=== PATIENT | female | born 2000 | race Caucasian/White ===

== ENCOUNTER 2019-01-16 11:31 | Emergency (ER) | payer BC ==
[~2019-01-16] VITALS: Ht 157.5 cm; Wt 64.2 kg
--- NOTE | 2019-01-16 11:50 | NUR ---
[facility]
[2019-01-16 12:43] LABS: BASOPHILS # (AUTO) 0.03 x10^3/uL (0-0.3); BASOPHILS % (AUTO) 1 % (0-1); EOSINOPHILS # (AUTO) 0.05 x10^3/uL (0-0.8); EOSINOPHILS % (AUTO) 1 % (1-7); LYMPHOCYTES # (AUTO) 1.57 x10^3/uL (1-6.1); LYMPHOCYTES % (AUTO) 41 % (22-44); MD NO; MEAN CORPUSCULAR HGB CONC 33.5 g/dL (32.4-35.8); MEAN CORPUSCULAR VOLUME 83.5 fL (80-100); MEAN PLATELET VOLUME 8.6 fL (7.4-10.4); MONOCYTES # (AUTO) 0.34 x10^3/uL (0-1.4); MONOCYTES % (AUTO) 9 % (2-9); NEUTROPHILS # (AUTO) 1.88 x10^3/uL (1.8-8.0); NEUTROPHILS % (AUTO) 49 % (42-75); PLATELET COUNT 244 x10^3/uL (130-400); RED CELL DISTRIBUTION WIDTH 15.7 % (9.6-15.2)
[2019-01-16 12:50] LABS: ALBUMIN 4.5 g/dL (3.4-5.0); ANION GAP 4 mmol/L (5-15); CALCIUM 8.9 mg/dL (8.5-10.1); CHLORIDE 108 mmol/L (98-107); CREATININE 0.81 mg/dL (0.55-1.02)
--- NOTE | 2019-01-16 13:13 | NUR ---
patient transported for ct scan
[2019-01-16 13:17] LABS: MICROSCOPIC INDICATED
[2019-01-16 13:27] LABS: CULTURE INDICATED? NO
--- NOTE | 2019-01-16 13:47 | NUR ---
Discharge instuctions discussed with patient, verbalizes understanding, questions answered. Air cast applied to left ankle as ordered by Dr. Tijerina, patient tolerated well. Patient ambulates with limp to discharge desk with her boyfriend.
[2019-01-16 13:48] VITALS: BP 110/54
== END 2019-01-16 13:50 | disposition home or self-care (01) ==
LOC: ED 13:00
DX: R55 Syncope and collapse (principal)
CPT/HCPCS: 36415; 70450; 80048; 81001; 82040; 84703; 85025; 93005; 99284

== ENCOUNTER 2020-11-28 13:22 | Emergency (ER) | payer BC ==
[~2020-11-28] VITALS: Ht 157.5 cm; Wt 59.0 kg
[~2020-11-28 13:22] MED LIST: BIRTH CONTROL PILL
--- NOTE | 2020-11-28 13:22 | NUR ---
PHIL FROM [facility] C/O SI (PLAN TO GO TO [employer] [employer]), WORSENING DEPRESSION OVER "A FEW MONTHS", + INTERMITTENT VISUAL HALLUC (FLOOR & COLES WAVY, SHADOWS, SHIMMERING LIGHTS), HX/O SA X15 WITH LAST EPISODE OF OD OF RX MEDS & INGESTION OF BODY MIST. Addendum: 11/28/20 at 1345 by BESSY Amendment undone in EDM - 11/28/20 at 1349 by BESSY PHIL FROM [facility] C/O SI (PLAN TO GO TO [employer] [employer] [facility]), WORSENING DEPRESSION OVER "A FEW MONTHS", + INTERMITTENT VISUAL HALLUC (FLOOR & COLES WAVY, SHADOWS, SHIMMERING LIGHTS), HX/O SA X15 WITH LAST EPISODE OF OD OF RX MEDS & INGESTION OF BODY MIST. PT CHANGED INTO GOWN, CXALM & COOPERATIVE, FLAT AFFECT BUT RESPONDS APPROP TO STAFF, NAD, COMFORT MEASURES PROVIDED, PT IN SAFE ENVIRONMENT, CALL LIGHT WITHIN REACH, ALL PERSONAL BELONGINGS (CLOTHES/SHOES) X2 BAGS PLACED IN LOCKER- DENIES VALUABLES. Addendum: 11/28/20 at 1349 by BESSY BIBA FROM [facility] C/O SI (PLAN TO GO TO [employer]), WORSENING DEPRESSION OVER "A FEW MONTHS", + INTERMITTENT VISUAL HALLUC (FLOOR & COLES WAVY, SHADOWS, SHIMMERING LIGHTS), HX/O SA X15 WITH LAST EPISODE OF OD OF RX MEDS & INGESTION OF BODY MIST. PT CHANGED INTO GOWN, CALM & COOPERATIVE, FLAT AFFECT BUT RESPONDS APPROP TO STAFF, NAD, COMFORT MEASURES PROVIDED, PT IN SAFE ENVIRONMENT, sitter in view, ALL PERSONAL BELONGINGS (CLOTHES/SHOES) X2 BAGS PLACED IN LOCKER- DENIES VALUABLES.
[2020-11-28 14:01] LABS: BASOPHILS % (AUTO) 1 % (0-1); EOSINOPHILS % (AUTO) 2 % (1-7); LYMPHOCYTES % (AUTO) 32 % (22-44); MEAN CORPUSCULAR HEMOGLOBIN 31.1 pg (27.0-34.8); MEAN CORPUSCULAR HGB CONC 34.5 g/dL (32.4-35.8); MEAN PLATELET VOLUME 8.3 fL (7.4-10.4); MONOCYTES % (AUTO) 9 % (2-9); NEUTROPHILS % (AUTO) 56 % (42-75); PLATELET COUNT 217 x10^3/uL (130-400); RED BLOOD COUNT 4.62 x10^6/uL (3.82-5.3); RED CELL DISTRIBUTION WIDTH 13.3 % (9.6-15.2)
--- NOTE | 2020-11-28 14:01 | NUR ---
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
[2020-11-28 14:02] LABS: MD NO
[2020-11-28 14:08] LABS: ALANINE AMINOTRANSFERASE 18 U/L (12-78); ALBUMIN 4.6 g/dL (3.4-5.0); ANION GAP 6 mmol/L (5-15); CALCIUM 9.2 mg/dL (8.5-10.1); CHLORIDE 109 mmol/L (98-107); CREATININE 0.86 mg/dL (0.55-1.02)
[2020-11-28 14:09] LABS: SALICYLATE LEVEL < 1.7 mg/dL (2.8-20.0)
[2020-11-28 14:11] LABS: AMPHETAMINE SCREEN, URINE Negative (Negative); BARBITURATE SCREEN, URINE Negative (Negative); BENZODIAZEPINE SCREEN, URINE Negative (Negative); CANNABINOID SCREEN, URINE Positive (Negative); COCAINE SCREEN, URINE Negative (Negative); METHADONE SCREEN, URINE Negative (Negative); OPIATE SCREEN, URINE Negative (Negative)
[2020-11-28 14:13] LABS: ALKALINE PHOSPHATASE 65 U/L (45-117); BILIRUBIN,TOTAL 0.9 mg/dL (0.2-1.0); TOTAL PROTEIN 7.8 g/dL (6.4-8.2)
[2020-11-28] MEDS ORDERED: ARIPIPRAZOLE 10 MG TABLET PO SCH (15:00)
[2020-11-28] MEDS ORDERED: SERTRALINE 50MG TABLET PO SCH (15:00)
--- NOTE | 2020-11-28 15:03 | NUR ---
PT UPRIGHT ON GURNEY CALM & COOPERATIVE, RESPONDS APPROP TO STAFF, NAD, NO NEEDS AT THIS TIME, PT IN SAFE ENVIRONMENT, SITTER IN VIEW.
[2020-11-28] MEDS ORDERED: ARIPIPRAZOLE 10 MG TABLET ONE (15:30)
[2020-11-28] MEDS ORDERED: SERTRALINE 50MG TABLET ONE (15:30)
--- NOTE | 2020-11-28 16:01 | NUR ---
PT REMAINS UPRIGHT ON GURNEY WITH EYES CLOSED, RESPONDS APPROP TO STAFF, NAD, NO NEEDS AT THIS TIME, PT IN SAFE ENVIRONMENT, SITTER IN VIEW.
--- NOTE | 2020-11-28 17:00 | NUR ---
PT UPRIGHT ON GURNEY CALM & COOPERATIVE, WATCHING TV, RESPONDS APPROP TO STAFF, NAD, DINNER TRAY GIVEN- NO OTHER NEEDS AT THIS TIME, PT IN SAFE ENVIRONMENT, SITTER IN VIEW.
--- NOTE | 2020-11-28 18:02 | NUR ---
PT REMAINS UPRIGHT ON GURNEY CALM & COOPERATIVE, WATCHING TV, RESPONDS APPROP TO STAFF, NAD, DINNER TRAY GIVEN- NO OTHER NEEDS AT THIS TIME, PT IN SAFE ENVIRONMENT, SITTER IN VIEW.
--- NOTE | 2020-11-28 18:51 | NUR ---
BEDSIDE REPORT FROM BRENDON SUAREZ, PT CARE TRANSFERRED AT THIS TIME.
--- NOTE | 2020-11-28 18:57 | NUR ---
REPORT GIVEN TO DONOVAN SUAREZ
[2020-11-28 19:25] VITALS: BP 130/73
--- NOTE | 2020-11-28 19:27 | NUR ---
PT RESTING ON REKHA, CHAYA, REPORTS HAVING A "SLIGHT HEADACHE BUT I DONT NEED ANYTHING FOR IT", PT PROVIDED WATER PER REQUEST FOR COMFORT, SI PRECAUTIONS IN PLACE, SITTER IN LINE OF SIGHT, WCTM. PT TO BE TRANSFERRED TO U WHEN ESTABLISHED WHICH RN IS TAKING HER.
--- NOTE | 2020-11-28 19:51 | NUR ---
REPORT CALLED TO BANDAR SUAREZ, PT TO BE TRANSFERRED TO [facility].
[2020-11-28] MEDS ORDERED: DOXEPIN 10 MG CAPSULE PO PRN (21:00)
[2020-11-29] MEDS ORDERED: NORE0.3513 PO (13:26)
== END 2020-11-28 20:21 | disposition other institution (70) ==
LOC: ED 14:58
DX: F32.2 Major depressive disorder, single episode, severe without psychotic features (principal); Z20.822 Contact with and (suspected) exposure to COVID-19; J32.0 Chronic maxillary sinusitis; M79.7 Fibromyalgia
CPT/HCPCS: 36415; 80053; 80299; 80307; 80320; 80329; 84703; 85025; 87426; 99284; G0480

== ENCOUNTER 2020-11-28 17:43 | Inpatient (IN) | payer BC ==
[~2020-11-28] VITALS: Ht 157.5 cm; Wt 55.8 kg
[2020-11-28] MEDS ORDERED: BISACODYL 10 MG SUPP PR PRN (20:00)
[2020-11-28] MEDS ORDERED: POLYETHYLENE GLYCOL 17 GM PACKET PO PRN (20:00)
[2020-11-28] MEDS ORDERED: DOCUSATE 100 MG CAPSULE PO PRN (20:00)
[2020-11-28] MEDS ORDERED: DOXEPIN 25 MG CAPSULE PO PRN (20:00)
[2020-11-28 20:15] VITALS: BP 101/64
[2020-11-28] MEDS: ACETAMINOPHEN 325 MG TABLET PO PRN (21:16)
[2020-11-28] MEDS: DOXEPIN 10 MG CAPSULE PO PRN (22:21)
[2020-11-29 06:57] LABS: CHOL/HDL RATIO 2.4; FREE T4 (FREE THYROXINE) 1.19 ng/dL (0.76-1.46); LDL/HDL RATIO 1.2 (0.5-3.0)
[2020-11-29 07:03] LABS: MICROSCOPIC NOT IND
[2020-11-29 07:18] VITALS: BP 111/71
[2020-11-29] MEDS ORDERED: ARIPIPRAZOLE 10 MG TABLET PO SCH (09:00)
[2020-11-29] MEDS: SERTRALINE 50MG TABLET PO SCH (10:11)
[2020-11-29] MEDS: NICOTINE 14MG/24 HR PATCH.TD24 TD SCH (10:11)
[2020-11-29 10:54] LABS: BASOPHILS % (AUTO) 1 % (0-1); EOSINOPHILS % (AUTO) 2 % (1-7); LYMPHOCYTES % (AUTO) 32 % (22-44); MEAN CORPUSCULAR HGB CONC 34.1 g/dL (32.4-35.8); MONOCYTES % (AUTO) 9 % (2-9); NEUTROPHILS % (AUTO) 57 % (42-75); PLATELET COUNT 243 x10^3/uL (130-400); RED BLOOD COUNT 4.78 x10^6/uL (3.82-5.3); RED CELL DISTRIBUTION WIDTH 13.3 % (9.6-15.2)
[2020-11-29 10:55] LABS: MD NO
[2020-11-29 11:03] LABS: ALANINE AMINOTRANSFERASE 20 U/L (12-78); ALBUMIN 4.6 g/dL (3.4-5.0); ANION GAP 4 mmol/L (5-15); C-REACTIVE PROTEIN, QUANT 0.03 mg/dL (0.02-0.49); CALCIUM 9.7 mg/dL (8.5-10.1); CHLORIDE 107 mmol/L (98-107); CREATININE 0.92 mg/dL (0.55-1.02)
[2020-11-29 11:06] LABS: ALKALINE PHOSPHATASE 71 U/L (45-117); BILIRUBIN,TOTAL 1.1 mg/dL (0.2-1.0)
[2020-11-29] MEDS: ONDANSETRON ODT 4 MG PO PRN (12:17)
[2020-11-29] MEDS ORDERED: NORE0.3513 PO (13:26)
[2020-11-29] MEDS: CARIPRAZINE 1.5 MG CAP PO SCH (15:21)
[2020-11-29 19:22] VITALS: BP 115/71
[2020-11-29] MEDS: NORETHINDRONE 0.35 MG HOMEMEDPO SCH (20:31)
[2020-11-30 07:26] VITALS: BP 119/74
[2020-11-30] MEDS: CARIPRAZINE 1.5 MG CAP PO SCH (08:46)
[2020-11-30] MEDS: SERTRALINE 50MG TABLET PO SCH (08:46)
[2020-11-30] MEDS: NICOTINE 14MG/24 HR PATCH.TD24 TD SCH (08:46)
[2020-11-30] MEDS: NORETHINDRONE 0.35 MG HOMEMEDPO SCH (08:47)
[2020-11-30] MEDS: ONDANSETRON ODT 4 MG PO PRN (12:16)
[2020-11-30] MEDS: DIPHENHYDRAMINE/ZINC CRM 2%, 30GM TP PRN (19:10)
[2020-11-30 19:30] VITALS: BP 125/71
[2020-11-30] MEDS: ACETAMINOPHEN 325 MG TABLET PO PRN (20:03)
[2020-11-30] MEDS: DOXEPIN 10 MG CAPSULE PO PRN (22:07)
[2020-12-01 07:29] VITALS: BP 113/69
[2020-12-01] MEDS: NICOTINE 14MG/24 HR PATCH.TD24 TD SCH (08:27)
[2020-12-01] MEDS: CARIPRAZINE 1.5 MG CAP PO SCH (08:28)
[2020-12-01] MEDS: NORETHINDRONE 0.35 MG HOMEMEDPO SCH (08:29)
[2020-12-01] MEDS ORDERED: SERTRALINE 50MG TABLET PO SCH (09:00)
[2020-12-01 19:32] VITALS: BP 109/70
[2020-12-01] MEDS: DIPHENHYDRAMINE/ZINC CRM 2%, 30GM TP PRN (20:23)
[2020-12-01] MEDS ORDERED: DOXEPIN 10 MG CAPSULE PO SCH (21:00)
[2020-12-02 07:37] VITALS: BP 104/66
[2020-12-02] MEDS: NORETHINDRONE 0.35 MG HOMEMEDPO SCH (09:00)
[2020-12-02] MEDS: CARIPRAZINE 1.5 MG CAP PO SCH (09:00)
[2020-12-02] MEDS: SERTRALINE 50MG TABLET PO SCH (09:07)
[2020-12-02] MEDS: NICOTINE 14MG/24 HR PATCH.TD24 TD SCH (09:08)
[2020-12-02] MEDS: ACETAMINOPHEN 325 MG TABLET PO PRN (09:16)
[2020-12-02] MEDS ORDERED: SODIUM CHLORIDE NASAL SPRAY 45ML BOTTLE NAS PRN (10:00)
[2020-12-02] MEDS ORDERED: SERT50TA28 PO (12:57)
[2020-12-02] MEDS ORDERED: NICO-486 TD (12:57)
[2020-12-02] MEDS ORDERED: CARI1.5C2 PO (12:57)
[2020-12-02] MEDS ORDERED: TRAZ50TA66 PO (12:59)
[2020-12-02 19:35] VITALS: BP 118/68
[2020-12-02] MEDS ORDERED: TRAZODONE 50MG TABLET PO SCH (21:00)
[2020-12-03 07:33] VITALS: BP 121/82
[2020-12-03] MEDS: SERTRALINE 50MG TABLET PO SCH (08:23)
[2020-12-03] MEDS ORDERED: IBUPROFEN 200 MG TABLET PO PRN (08:30)
[2020-12-03] MEDS: CARIPRAZINE 1.5 MG CAP PO SCH (09:00)
[2020-12-03] MEDS: NICOTINE 14MG/24 HR PATCH.TD24 TD SCH (09:00)
[2020-12-03] MEDS: NORETHINDRONE 0.35 MG HOMEMEDPO SCH (09:00)
== END 2020-12-03 09:37 | disposition home or self-care (01) | DRG 885 ==
LOC: 3E 20:21
PROVIDERS: ADMIT Psychiatry & Neurology Psychosomatic Medicine; ATTEND Psychiatry & Neurology Psychosomatic Medicine
DX: F33.3 Major depressive disorder, recurrent, severe with psychotic symptoms (principal); F12.10 Cannabis abuse, uncomplicated; F17.200 Nicotine dependence, unspecified, uncomplicated; G47.00 Insomnia, unspecified; M79.7 Fibromyalgia; Z79.899 Other long term (current) drug therapy; Z88.0 Allergy status to penicillin
CPT/HCPCS: 36415; 71045; 80053; 80061; 81003; 83615; 84439; 84443; 85025; 85379; 86140; 93005; Q0162